=== PATIENT | female | born 1970 | race Caucasian/White ===

== ENCOUNTER 2019-05-06 09:00 | Outpatient (CLI) | payer BC, SELFPAY ==
--- NOTE | ~2019-05-06 | US_ITS ---
EXAMINATION: US transvaginal DATE: 05/06/2019 09:47 INDICATION: Abnormal uterine bleeding TECHNIQUE: Multiple endovaginal sonographic images of the pelvis were obtained. COMPARISON: None. FINDINGS: The uterus measures 7.9 x 4.3 x 5.2 cm. There is a 2.1 x 1.7 cm isoechoic area in the poste rior uterine body which has the appearance of an intramural fibroid. There also appears to be 1.5 x 1 .4 cm subserosal fibroid projecting at the right posterior lateral aspect of the uterine body. The en dometrial complex measures 5 mm. The right ovary measures 1.8 x 1.5 x 2.1 cm. The left ovary measures 2.2 x 2.0 x 2.9 cm. There is no free fluid in the pelvis. IMPRESSION: 1. No sonographic correlate for the patient's symptoms. Reviewed, dictated and finalized at location A.
== END 2019-05-06 09:01 ==
PROVIDERS: PCP Family Medicine; Visit Provider Obstetrics & Gynecology
DX: N93.9 Abnormal uterine and vaginal bleeding, unspecified (principal)
CPT/HCPCS: 76830

== ENCOUNTER → 2020-05-07 18:11 | Outpatient (CLI) | payer BC, SELFPAY ==
--- NOTE | ~2020-05-07 | MM_ITS ---
EXAMINATION: MM screening [facility] BI w martin HISTORY: Screening mammogram TECHNIQUE: Craniocaudal and mediolateral oblique 3-D tomosynthesis images were obtained and synthetic 2-D images were generated. CAD analysis was submitted and interpreted. COMPARISON: 09/10/2018, 10/13/2015, 03/13/2015, 03/09/2015 BREAST PARENCHYMAL COMPOSITION: There are scattered areas of fibroglandular density. FINDINGS: There is no evidence of suspicious mass, calcification, or architectural distortion to sugg est malignancy in either breast. There has been no suspicious interval change. IMPRESSION: 1. No mammographic evidence of malignancy. 2. Recommend routine screening mammography in one year. BI-RADS Category 1: Negative Reviewed, dictated and finalized at location A.
== END ==
PROVIDERS: Visit Provider Obstetrics & Gynecology
DX: Z12.31 Encounter for screening mammogram for malignant neoplasm of breast (principal)
CPT/HCPCS: 77063; 77067

== ENCOUNTER 2021-05-05 13:48 | Outpatient (CLI) | payer BC, SELFPAY ==
--- NOTE | ~2021-05-05 | XR_ITS ---
XR chest 2V DATE: 05/05/2021 14:17 INDICATION: Tobacco use TECHNIQUE: PA and lateral views COMPARISON: 08/15/2018 PA and lateral chest FINDINGS: Normal heart size. No hilar or mediastinal enlargement. No pulmonary infiltrate or consolid ation, pleural effusion or pulmonary vascular congestion or pneumothorax. IMPRESSION: No active cardiopulmonary disease Reviewed, dictated and finalized at location A.
== END 2021-05-05 13:49 ==
PROVIDERS: PCP Physician Assistant Medical; Visit Provider Physician Assistant Medical
DX: Z72.0 Tobacco use (principal)
CPT/HCPCS: 71046

== ENCOUNTER → 2021-07-08 15:18 | Outpatient (CLI) | payer BC, SELFPAY ==
--- NOTE | ~2021-07-08 | MM_ITS ---
EXAMINATION: MM screening [facility] BI w martin HISTORY: Screening mammogram TECHNIQUE: Craniocaudal and mediolateral oblique 3-D tomosynthesis images were obtained and synthetic 2-D images were generated. CAD analysis was submitted and interpreted. COMPARISON: 05/07/2020, 09/10/2018, 10/13/2015 bilateral screening mammogram examinations BREAST PARENCHYMAL COMPOSITION: There are scattered areas of fibroglandular density. FINDINGS: There is no evidence of suspicious mass, calcification, or architectural distortion to sugg est malignancy in either breast. There has been no suspicious interval change. IMPRESSION: 1. No mammographic evidence of malignancy. 2. Recommend routine screening mammography in one year. BI-RADS Category 1: Negative Reviewed, dictated and finalized at location A.
--- NOTE | ~2021-07-08 | DEXA_ITS ---
Bone Density Report Name: JAMES CANTU Age: 51 Sex: Female Ethnicity: White Date of : 1970 Indication: postmenopausal; screening for osteoporosis; Referring Provider: SILVIANO, ADDY Study: Bone densitometry was performed. Exam Date: July 08, 2021 Accession number: [id number] Bone Density: Region BMD T-score Z-score Classification AP Spine (L1-L4) 1.185 1.3 2.1 Normal Femoral Neck (Left) 0.974 1.1 1.9 Normal Total Hip (Left) 1.145 1.7 2.2 Normal Femoral Neck (Right) 0.952 0.9 1.7 Normal Total Hip (Right) 1.139 1.6 2.1 Normal Total Hip Mean 1.142 1.7 2.2 Normal World Health Organization criteria for BMD impression classify patients as: Normal (T-score at or above -1.0), Osteopenia (T-score between -1.0 and -2.5), or Osteoporosis (T-score at or below -2.5). 10-year Fracture Risk: FRAX not reported because: All T-scores for Spine Total, Hip Total, Femoral Neck at or above -1.0 Clinical Information Provided by Patient: Smokes Patient maximum height was 67.5 Menopause Age: 50 No regular weight bearing exercise Drinks caffeinated beverages Onset of menses at age 13 Number of children 3 Impression: The patient has normal bone mass. The patient has risk factors, including: smoking. Discussion: BONE DENSITY IS ABOVE THE MINIMUM DESIRABLE LEVEL AT ALL SKELETAL SITES TESTED. This patient?s bone mineral density is above the minimum desirable level (T-score -1.0 or better) at all sites measured. The patient should follow a healthful lifestyle (good nutrition with adequate calcium and vitamin D, and appropriate weight-bearing exercise). Follow-Up: Consider repeating this study in 5 years or sooner if there is some new clinical indication. Reported by: ANAND on 07/08/2021 3:59:00 PM. Reviewed, dictated and finalized at location AJose Francisco BUTCHER
== END ==
PROVIDERS: PCP Family Medicine; Visit Provider Nurse Practitioner
DX: Z12.31 Encounter for screening mammogram for malignant neoplasm of breast (principal); Z78.0 Asymptomatic menopausal state
CPT/HCPCS: 77063; 77067; 77080

== ENCOUNTER 2021-09-17 17:24 | Emergency (ER) | payer BC, SELFPAY ==
--- NOTE | ~2021-09-17 | XR_ITS ---
EXAMINATION: XR chest 2V 09/17/2021 17:55 INDICATION: Productive cough with shortness of breath PROCEDURE: 2 view chest COMPARISON: Comparison to multiple prior studies sequentially, with oldest reviewed study dated 11/07. FINDINGS: The lungs are clear. The cardiomediastinal silhouette is within normal limits. There are no pleural effusions. There is no pneumothorax suspected. IMPRESSION: 1: NO ACUTE CARDIOPULMONARY DISEASE. Reviewed, dictated and finalized at location A.
[2021-09-17 17:31] VITALS: BP 117/84; PULSE 73; RESP 18; TEMP 37; O2SAT 100
--- NOTE | 2021-09-17 18:12 | ED.URI ---
HPI - URI/Sore Throat General Chief Complaint: Upper Respiratory Infection Stated Complaint: Cough,Shortness of Breath,Congestion Time Seen by Provider: 09/17/21 18:00 History of Present Illness HPI Narrative: Natalie Ryan is a 51 yo female with PMH of hyperlipidemia and enlarged thyroid ,but smokes 1 PPD who comes with a cough that wakes her up at night. She states that been going on for 2 to 3 weeks and continually gets worse. She has not taken anything for it but has tried elevating the bed is well-hydrated . Denies fever nausea vomiting diarrhea Related Data Allergies Allergy/AdvReac Type Severity Reaction Status Date / Time sulfanilamide Allergy Intermediate Diarrhea Verified 09/17/21 17:35 Sulfa (Sulfonamide AdvReac Mild Abdominal Verified 09/17/21 17:51 Antibiotics) Pain Review of Systems Review of Systems: CONSTITUTIONAL: Denies fever, chills, sweats. EYES: Denies visual changes, redness, discharge. ENT: Denies rhinorrhea, congestion, sore throat, otalgia. CARDIOVASCULAR: Denies chest pain, palpitations, edema. RESPIRATORY: Denies dyspnea, wheezing, has cough-feels like she is choking when she wakes up GASTROINTESTINAL: Denies abdominal pain, nausea, vomiting, diarrhea. GENITOURINARY: Denies dysuria, hematuria, abnormal discharge SKIN: Denies rash or itching. NEUROLOGIC: Denies numbness, or focal weakness. PSYCHIATRIC: Denies anxiety or depression. [facility]LY [facility], [facility] Past Medical History Medical History Anxiety BMI 25.0-25.9,adult Cyst of kidney, acquired Mixed hyperlipidemia Seasonal allergies Thyroid enlargement Family History Family History Father Family history of premature coronary heart disease Hypertension Acute myocardial infarction Heart disease Grandparent Family history of malignant neoplasm Family history of coronary artery disease Mother No problems noted. Sibling No problems noted. 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 There is no relevant family history pertinent to the presenting complaint. Exam Narrative: GENERAL: This is a well-nourished, well-developed patient, in mild distress. HEAD: normocephalic, atraumatic. EYES: Sclera clear/white. Vision is grossly intact. EARS: External ears normal, . Hearing grossly intact. NOSE: External nose normal without nasal discharge, nares without redness, no rhinorrhea. THROAT: Mucous membranes moist, NECK: Neck supple, non-tender CARDIOVASCULAR: Regular rate and rhythm without murmurs, gallops, or rubs. RESPIRATORY: Diminished to auscultation. Breath sounds equal bilaterally. No wheezes, rales, or rhonchi. GASTROINTESTINAL: Not done SKIN: warm, intact with no suspicious lesions or rash, good texture and turgor. NEURO: awake, alert, and oriented to person, place and time. There were no obvious focal neurologic abnormalities. Steady gait EXTREMITIES: Normal range of motion. BACK: Nontender without deformity Course Course Emergency Course: Patient here with cough that wakes her up at night for the last 2 to 3 weeks- she is a current smoker Chest x-ray shows no active cardiopulmonary disease COVID test is negative Discussed in length smoking and also the symptoms she is having started on prednisone, Zyrtec, Tessalon Perles Level of Care: Express Care Visit Vital Signs Vital signs: Vital Signs Temperature 98.6 F 09/17/21 17:31 Pu
== END 2021-09-17 18:25 | disposition home or self-care (01) ==
PROVIDERS: Emergency Provider Nurse Practitioner; PCP Family Medicine
DX: R05.1 Acute cough (principal); Z20.822 Contact with and (suspected) exposure to COVID-19; F17.210 Nicotine dependence, cigarettes, uncomplicated; E78.2 Mixed hyperlipidemia; E04.9 Nontoxic goiter, unspecified
CPT/HCPCS: 71046; 87426; 99213; C9803; G0463

== ENCOUNTER 2021-10-30 13:05 | Emergency (ER) | payer BC, SELFPAY ==
--- NOTE | 2021-10-30 13:10 | ED.URI ---
HPI - URI/Sore Throat General Chief Complaint: Upper Respiratory Infection Stated Complaint: Sinus,Cough Time Seen by Provider: 10/30/21 13:10 Source: patient Mode of arrival: ambulatory Limitations: no limitations History of Present Illness HPI Narrative: Mrs. Ryan is 51 year old female patient presenting to the clinic today with c/o sinus pressure, productive cough, and headache x3 months. States she was seen here in the clinic 6 weeks ago for the same symptoms and was given prescription for tessalon pearls and prednisone. She had an x-ray done at that time and it was negative. MD elicited complaint: cough, nasal congestion and sinus pain Related Data Allergies Allergy/AdvReac Type Severity Reaction Status Date / Time sulfanilamide Allergy Intermediate Diarrhea Verified 10/30/21 13:10 Sulfa (Sulfonamide AdvReac Mild Abdominal Verified 10/30/21 13:10 Antibiotics) Pain Review of Systems Review of Systems: Pertinent positives per HPI. Patient denies any fever, chills, rash, headache, visual changes, dizziness, cough, shortness of breath, chest pain, palpitations, nausea, vomiting, diarrhea, constipation, abdominal pain, or any urinary issues. [facility] Past Medical History Medical History Anxiety BMI 25.0-25.9,adult Cyst of kidney, acquired Mixed hyperlipidemia Seasonal allergies Thyroid enlargement Family History Family History Father Family history of premature coronary heart disease Hypertension Acute myocardial infarction Heart disease Grandparent Family history of malignant neoplasm Family history of coronary artery disease Mother No problems noted. Sibling No problems noted. 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 There is no relevant family history pertinent to the patient complaint. Exam Narrative: General: Well-developed, well nourished, in no apparent distress Head: Normocephalic, atraumatic Eyes: Pupils equally round and reactive to light bilaterally, EOM intact, sclera and conjunctive clear, no discharge, lids normal Ears: TMs intact and clear, ear canals clear, no drainage, grossly hearing normal. Nose: Nares patent, clear nasal discharge, severe inflammation, maxillary and frontal sinus tenderness. Mouth: Oral pharynx without lesions or masses, good dentition, MMM. Post nasal drip Neck: Supple, trachea midline, no enlargement of anterior or posterior cervical nodes, no thyroid masses or goiter palpable. Cardio: Regular rate and rhythm, s1 and s2 normal, no murmur appreciated. Resp: Clear to auscultation bilaterally, no rhonchi, rales, wheezing or rubs Course Course Emergency Course: Portions of this record may have been created with voice recognition software. Level of Care: Express Care Visit Vital Signs Vital signs: Vital signs reviewed MDM - URI/Sore Throat MDM Narrative Medical decision making narrative: At the time of visit patient is resting comfortably in the exam table. I suspect the patient has bacterial rhinosinusitis and will give her a prescription for some Augmentin and some prednisone. Supportive measures were discussed with the patient she voiced understanding of discharge instructions and agrees to treatment plan peer Differential Diagnosis Differential diagnosis: Likely upper respiratory infection, otitis media, sin
[2021-10-30 13:13] VITALS: BP 114/79; PULSE 76; RESP 18; TEMP 37.3; O2SAT 100
== END 2021-10-30 13:39 | disposition home or self-care (01) ==
PROVIDERS: Emergency Provider Nurse Practitioner Family; PCP Family Medicine
DX: J01.90 Acute sinusitis, unspecified (principal); B96.89 Other specified bacterial agents as the cause of diseases classified elsewhere; E78.5 Hyperlipidemia, unspecified; F17.210 Nicotine dependence, cigarettes, uncomplicated
CPT/HCPCS: 99213; G0463

== ENCOUNTER 2022-04-01 02:55 | Day surgery (SDC) | payer BC, SELFPAY ==
[2022-03-24 13:08] VITALS: BMI 23.4
[2022-04-01 08:32] VITALS: BP 115/49; PULSE 82; RESP 20; TEMP 36.2; O2SAT 99
[2022-04-01] MEDS: LACTATED RINGERS 1,000 ML 150 ML IV CONT (08:46)
[2022-04-01 08:47] VITALS: BMI 23.1
--- NOTE | 2022-04-01 08:59 | P.PNAN_ITS ---
Anes - Initial Pre Proc Eval Procedure: Operation Date: 04/01/22 09:30 Proposed Procedures p Screening Colonoscopy - Sebastian Werner MD Date/Time: 04/01/22 08:59 Surgeon: Sebastian Werner MD Pre Op Diagnosis: neoplasm screening Patient Data Age: 51 Gender: F Height: 1.7 m Weight: 66.8 kg Last Vital Signs Temp 97.2 F L 04/01/22 08:32 Pulse 82 04/01/22 08:32 Resp 20 04/01/22 08:32 BP 115/49 L 04/01/22 08:32 Pulse Ox 99 04/01/22 08:32 O2 Del Method Room Air 04/01/22 08:32 Allergies Allergy/AdvReac Type Severity Reaction Status Date / Time sulfanilamide Allergy Intermediate Diarrhea Verified 04/01/22 08:28 Sulfa (Sulfonamide Allergy Mild Abdominal Verified 04/01/22 08:28 Antibiotics) Pain Patient hx anesthesia problems: none Family hx anesthesia problems: none Results Review: All pre-operative results and documents have been reviewed as part of the pre- operative evaluation. [facility] Past Medical History Medical History Anxiety BMI 25.0-25.9,adult Cyst of kidney, acquired Mixed hyperlipidemia Seasonal allergies Thyroid enlargement Family History Family History Father Family history of premature coronary heart disease Hypertension Acute myocardial infarction Heart disease Grandparent Family history of malignant neoplasm Family history of coronary artery disease Mother No problems noted. Sibling No problems noted. 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 Informed Consent: The patient's anesthetic plan and its attendant risks and benefits were discussed with the patient/family/POA. Questions were solicited and answers provided to the satisfaction of the patient/family/POA.
--- NOTE | 2022-04-01 09:11 | PM.HPGS ---
History of Present Illness History of Present Illness Consent: Risks, benefits, and alternatives have been discussed and questions answered. Patient agrees to proceed with procedure. Chief complaint: neoplasm screening Narrative: Jeannie Ryan is a 51 year old female Presents for screening colonoscopy. Patient's current weight appetite bowel movements are normal. Patient denies abdominal pain. sHe has had no bleeding. Patient had previous diagnosis of Lobo's esophagus. Plan for screening EGDs every 3 years this will be arranged separately. Review of Systems Review of Systems: noncontributary [facility] Past Medical History Medical History Anxiety BMI 25.0-25.9,adult Cyst of kidney, acquired Mixed hyperlipidemia Seasonal allergies Thyroid enlargement Family History Family History Father Family history of premature coronary heart disease Hypertension Acute myocardial infarction Heart disease Grandparent Family history of malignant neoplasm Family history of coronary artery disease Mother No problems noted. Sibling No problems noted. 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 Vital signs stable. HEENT exam is unremarkable. Patient is anicteric. Lungs are clear. Heart without murmur. Abdomen bowel sounds present soft nontender with no organomegaly. Digital external rectal exam normal. Assessment and Plan Assessment and plan (1) Screening for colon cancer: Code(s): Z12.11 - Encounter for screening for malignant neoplasm of colon Status: Acute Assessment and Plan: Patient presents for neoplasia screening colonoscopy. Further recommendations will be given after endoscopy. She appears to be at average risk for colon polyps. (2) Lobo's esophagus: Code(s): K22.70 - Lobo's esophagus without dysplasia Status: Acute Assessment and Plan: Lobo's esophagus diagnosed 3 years ago. Plan for surveillance colonoscopy this should be arranged electively and consider this at 3 year intervals. (3) GERD (gastroesophageal reflux disease): Code(s): K21.9 - Gastro-esophageal reflux disease without esophagitis Status: Acute Assessment and Plan: GERD stable on current therapy.
[2022-04-01 09:55] VITALS: BP 91/57; PULSE 68; RESP 17; O2SAT 99
[2022-04-01 10:05] VITALS: BP 85/56; PULSE 64; RESP 17; O2SAT 99
[2022-04-01 10:15] VITALS: BP 100/92; PULSE 60; RESP 20; O2SAT 99
== END 2022-04-01 10:32 | disposition home or self-care (01) ==
PROVIDERS: PCP Family Medicine; Visit Provider Internal Medicine Gastroenterology
PROC: 0DJD8ZZ Inspection of Lower Intestinal Tract, Via Natural or Artificial Opening Endoscopic (ICD-10-PCS; CPT 45378; principal; 2022-04-01 09:30)
DX: Z12.11 Encounter for screening for malignant neoplasm of colon (principal); K64.8 Other hemorrhoids; F17.210 Nicotine dependence, cigarettes, uncomplicated
CPT/HCPCS: 45378; J2704; J7120

== ENCOUNTER 2022-06-10 15:41 | Outpatient (CLI) | payer BC, SELFPAY ==
--- NOTE | ~2022-06-10 | US_ITS ---
EXAMINATION: US transvaginal DATE: 06/10/2022 16:10 INDICATION: pmb TECHNIQUE: Multiple transabdominal and endovaginal sonographic images of the pelvis were obtained. COMPARISON: None. FINDINGS: Uterus: 6.7 x 3.3 x 4.3 cm. Endometrial complex measures 3 mm. Right Ovary: Not visualized. No adnexal mass. Left Ovary: Not visualized. No adnexal mass. There is no free fluid in the pelvis. IMPRESSION: Ovaries not visualized, otherwise normal pelvic sonogram findings. Reviewed, dictated and finalized at location K.
== END 2022-06-10 15:42 ==
LOC: MICIMG 15:43
PROVIDERS: PCP Nurse Practitioner; Visit Provider Nurse Practitioner
DX: N95.0 Postmenopausal bleeding (principal)
CPT/HCPCS: 76830

== ENCOUNTER 2022-08-09 09:02 | Emergency (ER) | payer BC, SELFPAY ==
--- NOTE | ~2022-08-09 | XR_ITS ---
EXAMINATION: XR heel LT min 2V INDICATION: Left heel pain TECHNIQUE: Two views of the left heel are obtained. COMPARISON: None available FINDINGS: Bone alignment is normal. There is no fracture. Posterior and plantar calcaneal enthesophyt es are noted. There is mild osteoarthritis of the midfoot. There is plantar soft tissue swelling of t he foot near the calcaneus. No radiopaque foreign body is identified. IMPRESSION: 1. Soft tissue swelling and osteoarthritis without acute osseous abnormality. Reviewed, dictated and finalized at location A.
--- NOTE | 2022-08-09 09:04 | ED.LOWEXIN ---
HPI - Extremity Injury (Lower) General Chief Complaint: Extremity Problem,Nontraumatic Stated Complaint: Lt Foot Pain Time Seen by Provider: 08/09/22 09:04 Source: patient Mode of arrival: ambulatory Limitations: no limitations History of Present Illness HPI Narrative: Jeannie is a 52-year-old female patient presenting to the clinic today with complaints of left heel pain x1 week. She reports she has pain to the posterior heel and it is radiating upper calf. No injury. She denies being a runner . No pain to the bottom of her foot. Pain is worse weight-bearing and when she is walking. Related Data Allergies Allergy/AdvReac Type Severity Reaction Status Date / Time sulfanilamide Allergy Intermediate Diarrhea Verified 08/09/22 09:16 Sulfa (Sulfonamide Allergy Mild Abdominal Verified 08/09/22 09:16 Antibiotics) Pain Review of Systems Review of Systems: Pertinent positives per HPI. Patient denies any fever, chills, rash, headache, visual changes, dizziness, cough, runny nose, sore throat, shortness of breath, chest pain, palpitations, nausea, vomiting, diarrhea, constipation, abdominal pain, or any urinary issues. [facility] Past Medical History Medical History Anxiety BMI 22.0-22.9, adult BMI 25.0-25.9,adult Cyst of kidney, acquired Mixed hyperlipidemia Seasonal allergies Thyroid enlargement Family History Family History Father Family history of premature coronary heart disease Hypertension Acute myocardial infarction Heart disease Grandparent Family history of malignant neoplasm Family history of coronary artery disease Mother No problems noted. Sibling No problems noted. Social History Social History Smoking packs per day: 0.5 Smoking cigarettes per day: 10.0 Years smoked: 32 Smoking pack-years: 16.00 Smoking status: Current every day smoker Tobacco type: cigarettes Second hand tobacco smoke exposure: No Alcohol intake: current Drinks per week: 1 Alcohol use details: WINE Substance use: never Substance use type: does not use Lack of Transportation: No Lack of Food: Never True Current Housing: I Have Housing Concerned About Future Housing: No Difficulty Paying Gas/Electric Bills: No Difficulty Paying for Meds: No Currently Unemployed: No Education: Associate Degree Difficulty w/ Childcare or Family Care: No Living arrangements: with family Occupation/Education: occupation 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 There is no relevant family history pertinent to the patient complaint. Exam Narrative: General: Well-developed, well nourished, in no apparent distress Head: Normocephalic, atraumatic. Cardio: Regular rate and rhythm, s1 and s2 normal, no murmur appreciated. Resp: Clear to auscultation bilaterally, no rhonchi, rales, wheezing or rubs. Musculoskeletal: No deformity, mild tender to palpation over the posterior heel/Achilles tendon, pain when weight-bearing and ambulation over the posterior heel with pain radiating up into the calf, grossly normal range of motion, muscle strength strong and equal, peripheral pulse strong, no edema, no cyanosis, normal gait and station Course Course Emergency Course: Portions of this record may have been created with voice recognition software. Level of Care: Express Care Visit Vital Signs Vital signs: Vital signs reviewed MDM - Extremity Injury (Lower) MDM Narrative Medical decision making narrative: At the time of visit patient is resting com
[2022-08-09 09:10] VITALS: BP 117/67; PULSE 74; RESP 18; TEMP 37; O2SAT 100
== END 2022-08-09 09:48 | disposition home or self-care (01) ==
PROVIDERS: Emergency Provider Nurse Practitioner Family; PCP Family Medicine
DX: M76.62 Achilles tendinitis, left leg (principal); M77.32 Calcaneal spur, left foot; M19.072 Primary osteoarthritis, left ankle and foot; F17.210 Nicotine dependence, cigarettes, uncomplicated; E78.2 Mixed hyperlipidemia
CPT/HCPCS: 73650; 99213; G0463

== ENCOUNTER → 2022-08-15 16:01 | Outpatient (CLI) | payer BC, SELFPAY ==
--- NOTE | ~2022-08-15 | MM_ITS ---
EXAMINATION: MM screening boni BI w martin HISTORY: Screening mammogram TECHNIQUE: Craniocaudal and mediolateral oblique 3-D tomosynthesis images were obtained and synthetic 2-D images were generated. CAD analysis was submitted and interpreted. COMPARISON: 07/08/2021, 05/07/2020, 09/10/2018 bilateral screening mammogram examinations BREAST PARENCHYMAL COMPOSITION: There are scattered areas of fibroglandular density. FINDINGS: There is no evidence of suspicious mass, calcification, or architectural distortion to sugg est malignancy in either breast. There has been no suspicious interval change. IMPRESSION: 1. No mammographic evidence of malignancy. 2. Recommend routine screening mammography in one year. BI-RADS Category 1: Negative Reviewed, dictated and finalized at location A.
== END ==
PROVIDERS: PCP Nurse Practitioner; Visit Provider Nurse Practitioner
DX: Z12.31 Encounter for screening mammogram for malignant neoplasm of breast (principal)
CPT/HCPCS: 77063; 77067

== ENCOUNTER 2022-09-26 14:47 | Emergency (ER) | payer BC, SELFPAY ==
--- NOTE | ~2022-09-26 | XR_ITS ---
EXAMINATION: XR chest 2V 09/26/2022 15:22 INDICATION: Cough and chest tightness. PROCEDURE: 2 view chest COMPARISON: Comparison to multiple prior studies sequentially, with oldest reviewed study dated 03/02. FINDINGS: The lungs are clear. The cardiomediastinal silhouette is within normal limits. There are no pleural effusions. There is no pneumothorax suspected. IMPRESSION: 1: NO ACUTE CARDIOPULMONARY DISEASE. Reviewed, dictated and finalized at location B.
[2022-09-26 14:56] VITALS: BP 116/70; PULSE 77; RESP 20; TEMP 37.1; O2SAT 100
--- NOTE | 2022-09-26 15:12 | ECG_ITS ---
Measurements Intervals Hall Rate: 72 P: 52 NE: 160 QRS: 40 QRSD: 93 T: 49 QT: 367 QTc: 404 Interpretive Statements SINUS RHYTHM COMPARED TO ECG 08/15/2018 09:24:09 NO SIGNIFICANT CHANGES Electronically Signed On 09-27-2022 11:12:06 CDT by Lance Damian M.D.
--- NOTE | 2022-09-26 15:17 | ED.URI ---
HPI - URI/Sore Throat General Chief Complaint: Upper Respiratory Infection Stated Complaint: Chest Tightness Source: patient Mode of arrival: ambulatory Limitations: no limitations History of Present Illness HPI Narrative: 52-year-old female presents [facility] complains of nonproductive cough for the past 3 days. Patient reports that she had started with midsternal chest pains for the past 2 days. Patient reports it feels like something is sitting on my chest. Patient took [id number] aspirin with no relief. Patient denies fever, body aches, chills, nausea vomiting or diarrhea. Patient reports the pain is worse with inspiration. Patient is a smoker. Patient has shortness of breath, wheezing. Patient reports her father of a [place] at age 59. Patient reports history of hyper lipidemia. MD elicited complaint: cough Onset (ago): day(s) (3) Severity: mild Able to tolerate fluids by mouth: Yes Exacerbating factors: nothing Relieving factors: nothing Associated symptoms: chest pain Related Data Allergies Allergy/AdvReac Type Severity Reaction Status Date / Time Sulfa (Sulfonamide AdvReac Intermediate Gastrointestinal Verified 09/26/22 14:48 Antibiotics) Upset sulfanilamide AdvReac Intermediate Diarrhea Verified 09/26/22 14:48 Review of Systems Constitutional: Constitutional: Denies chills, Denies fatigue, Denies fever(s) and Denies weakness ENT: Denies vertigo, Denies dizziness, Denies epistaxis, Denies nasal congestion and Denies sore throat Cardiovascular: Cardiovascular: Reports chest pain, Denies rapid heart rate, Denies radiating jaw, neck or arm pain and Denies slow heart rate Respiratory: Respiratory: Reports cough, Denies dyspnea and Denies wheezing Gastrointestinal: Gastrointestinal: Denies diarrhea, Denies nausea and Denies vomiting Integumentary/Breasts: Skin/Breast: Denies pruritus, Denies erythema, Denies rash and Denies skin ulcer Neurologic: Denies dizziness, Denies syncope and Denies headache(s) [facility] Past Medical History Medical History Anxiety BMI 22.0-22.9, adult BMI 25.0-25.9,adult Cyst of kidney, acquired Mixed hyperlipidemia Seasonal allergies Thyroid enlargement Family History Family History Father Family history of premature coronary heart disease Hypertension Acute myocardial infarction Heart disease Grandparent Family history of malignant neoplasm Family history of coronary artery disease Mother No problems noted. Sibling No problems noted. Social History Social History Smoking packs per day: 0.5 Smoking cigarettes per day: 10.0 Years smoked: 32 Smoking pack-years: 16.00 Smoking status: Current every day smoker Tobacco type: cigarettes Second hand tobacco smoke exposure: No Alcohol intake: current Drinks per week: 1 Alcohol use details: WINE Substance use: never Substance use type: does not use Lack of Transportation: No Lack of Food: Never True Current Housing: I Have Housing Concerned About Future Housing: No Difficulty Paying Gas/Electric Bills: No Difficulty Paying for Meds: No Currently Unemployed: No Education: Associate Degree Difficulty w/ Childcare or Family Care: No Living arrangements: with family Occupation/Education: occupation 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 There is no relevant family history pertinent to the presenting complaint. Exam Const: General: healthy appearing and no acute distress Nutritional Appearance: well nourished Orientation/consciousness: patient oriented x3 L
== END 2022-09-26 15:55 | disposition short-term general hospital (02) ==
PROVIDERS: Emergency Provider Nurse Practitioner Family; PCP Family Medicine
DX: R07.9 Chest pain, unspecified (principal); Z20.822 Contact with and (suspected) exposure to COVID-19; F17.210 Nicotine dependence, cigarettes, uncomplicated; E78.2 Mixed hyperlipidemia
CPT/HCPCS: 71046; 87426; 93005; 99213; C9803; G0463

== ENCOUNTER 2024-02-19 13:21 | Emergency (ER) | payer BC, SELFPAY ==
--- NOTE | ~2024-02-19 | XR_ITS ---
XR chest 2V Ordering provider: Yolande Newman APRN History: 53 years Female with . cough . Comparison: September 26, 2022 FINDINGS: MEDIASTINUM: The cardiac silhouette is not enlarged. LUNGS: No infiltrates, effusions or pneumothorax. OTHER: No free air under the diaphragm. IMPRESSION: No acute cardiopulmonary pathology. Reviewed, dictated and finalized at location A. ER ENGINEER
[2024-02-19 13:34] VITALS: BP 121/52; PULSE 79; RESP 18; TEMP 37.1; O2SAT 99
--- NOTE | 2024-02-19 13:40 | ED.URI ---
HPI - URI/Sore Throat General Chief Complaint: Upper Respiratory Infection Stated Complaint: congestion/arm pain Time Seen by Provider: 02/19/24 13:40 Source: patient, RN notes reviewed and old records reviewed Mode of arrival: ambulatory Limitations: no limitations History of Present Illness HPI Narrative: Patient presents with complaints of 10-12 days of sinus pain and congestion that is worsening, also complaining of some left arm pain that is worse with movement of the shoulder. She denies any injury or trauma. She has been taking [id number]-[id number]-[id number] medications for both of her complaints with minimal relief. She denies any fever, does endorse some lack of energy. She is also complaining of intermittent chills. Reports nonproductive cough that is worse at night. She denies any injury or trauma. Voices no other concerns or complaints at this time Related Data Allergies Allergy/AdvReac Type Severity Reaction Status Date / Time Sulfa (Sulfonamide AdvReac Intermediate Gastrointestinal Verified 02/19/24 13:41 Antibiotics) Upset sulfanilamide AdvReac Intermediate Diarrhea Verified 02/19/24 13:41 Review of Systems Review of Systems: All systems reviewed & are unremarkable except as noted in HPI and below Constitutional: Constitutional: Reports no additional constitutional complaints, Reports chills, Reports headache(s) and Reports lethargy ENT: Reports system reviewed and no additional complaints, except as documented, Reports headache(s), Reports sinus pain, Reports sinus pressure and Reports sore throat Cardiovascular: Cardiovascular: Reports no additional cardiovascular complaints Respiratory: Respiratory: Reports no additional respiratory complaints and Reports cough Gastrointestinal: Gastrointestinal: Reports no additional gastrointestinal complaints Musculoskeletal: Musculoskeletal: Reports as per HPI [facility] Past Medical History Medical History Anxiety BMI 22.0-22.9, adult BMI 25.0-25.9,adult Cyst of kidney, acquired Mixed hyperlipidemia Seasonal allergies Thyroid enlargement Family History Family History Father Family history of premature coronary heart disease Hypertension Acute myocardial infarction Heart disease Grandparent Family history of malignant neoplasm Family history of coronary artery disease Mother No problems noted. Sibling No problems noted. Social History Social History Smoking packs per day: 0.5 Smoking cigarettes per day: 10.0 Years smoked: 32 Smoking pack-years: 16.00 Smoking status: Current every day smoker Tobacco type: cigarettes Second hand tobacco smoke exposure: No Alcohol intake: current Drinks per week: 1 Alcohol use details: WINE Substance use: never Substance use type: does not use Lack of Transportation: No Lack of Food: Never True Current Housing: I Have Housing Concerned About Future Housing: No Difficulty Paying Gas/Electric Bills: No Difficulty Paying for Meds: No Currently Unemployed: No Education: Associate Degree Difficulty w/ Childcare or Family Care: No Living arrangements: with family Occupation/Education: occupation 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 There is no relevant family history pertinent to the patient complaint. Exam Const: General: cooperative, no acute distress, alert and awake Orientation/consciousness: oriented to person, oriented to place and oriented to time HENMT: Head: normal to inspection Ears: TM abnormal dull bilateral Face/Nose/Sinus: sinus tenderness Mouth: Yes moist mucous membranes Throat: posterior oropharynx abnormal erythema Resp: Effort & Inspection: normal respiratory effort and able to speak in complete sentences Auscultation: clear to auscultation bilaterally, no crackles, no rales, no rhonchi and no wheezes Cardio: Palpation: normal PMI Rate: regular rate Rhythm: regular rhythm Heart sounds: S1 normal heart sound present and S2 normal heart sound present Neuro: General: oriented to person, oriented to place and oriented to time Cranial nerves: Yes CN's II-XII intact bilaterally Extrem: Shoulder/upper arm images:  1. tenderness, reproducible with palpation of right side of neck Psych: Appearance: grossly normal Thought process: Normal thought process present Insight: Good insight present (Psych) Judgement: Good judgement present (Psych) Course Course Level of Care: Express Care Visit Vital Signs Vital signs: Vital Signs Temperature 98.7 F 02/19/24 13:34 Pulse Rate 79 02/19/24 13:34 Respiratory Rate 18 02/19/24 13:34 Blood Pressure 121/52 L 02/19/24 13:34 Pulse Oximetry 99 02/19/24 13:34 Oxygen Delivery Room Air 02/19/24 13:34 Temperature 98.7 F 02/19/24 13:34 Pulse Rate 79 02/19/24 13:34 Respiratory Rate 18 02/19/24 13:34 Blood Pressure 121/52 L 02/19/24 13:34 Pulse Oximetry 99 02/19/24 13:34 Oxygen Delivery Room Air 02/19/24 13:34 Reviewed MDM - URI/Sore Throat MDM Narrative Medical decision making narrative: history and exam consistent with sinusitis as well as left arm pain likely secondary to radicular pain. Start oral steroids and antibiotic therapy. patient is nontoxic appearing and stable for discharge home. Discharge instructions reviewed with patient, as well as provided in writing per nursing staff. The instructions also include specific and strict return/GO TO THE ER as well as f/u information. All questions have been answered, and the patient deny any further questions with discharge and discharge plan. Some parts of this dictation were generated by voice recognition software and may contain typographical and/or grammatical inaccuracies. Differential Diagnosis Differential diagnosis: Likely upper respiratory infection, otitis media, sinusitis, viral infection and bronchitis Medical Records Attestation: I reviewed the patient's medical records. Imaging Data My impression: no acute findings Radiologist's impression: [place] [address] XRay Report Signed Patient: Jeannie Ryan : 1970 MR#: [id number] Age: 53 Acct:[id number] Loc: [facility] ADM Date: 02/19/24Attending Dr: Ordering Physician: Yolande Newman FNP Date of Service: 02/19/24 Procedure(s): XR chest 2V Accession Number(s): [id number] cc: Yolande Newman FNP; Cristopher Blakely MD~ XR chest 2V Ordering provider: Yolande Newman APRN History: 53 years Female with . cough . Comparison: September 26, 2022 FINDINGS: MEDIASTINUM: The cardiac silhouette is not enlarged. LUNGS: No infiltrates, effusions or pneumothorax. OTHER: No free air under the diaphragm. IMPRESSION: No acute cardiopulmonary pathology. Reviewed, dictated and finalized at location A. 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 It is intended for [id number] communication. It is written in medical language and may contain unfamiliar abbreviations or verbiage. Medical documents are intended to carry relevant information, facts as evident, and the clinical opinion of the practitioner at the time of the encounter. This report may have been done utilizing a voice recognition system. Attempts have been made to correct errors. However, there may be uncorrected grammatical, spelling, and recognition errors present. The file time of this note does not necessarily represent the time the patient was seen. Dictated By: Jimbo Raza MD 02/19/24 1357 Signed By: <Electronically signed by Jimbo Raza MD in OV> 02/19/24 1359 Discharge Plan Discharge Clinical Impression: Radicular pain Sinusitis Qualifiers: Sinusitis location: frontal Chronicity: acute Recurrence: not specified as recurrent Qualified Code(s): J01.10 - Acute frontal sinusitis, unspecified Patient Disposition: Home, Self-Care Condition: Stable Instructions: Antibiotic Form, Sinusitis (ED) Additional Instructions: take medications as prescribed. Follow-up with primary care provider. Emergency department for new or worse symptoms Patient Language: Swedish Prescriptions: New amoxicillin-pot clavulanate 875-125 mg tablet 1 tablet PO Q12H Qty: 14 0RF prednisone 50 mg tablet 50 mg PO DAILY Qty: 5 0RF amoxicillin-pot clavulanate 400-57 mg/5 mL suspension for reconstitution 11 ml PO Q12H 7 Days Qty: 154 0RF prednisolone 15 mg/5 mL solution 60 mg PO DAILY 5 Days Qty: 100 0RF Follow-up/Referrals: Cristopher Blakely MD [Primary Care Provider] - 1 Week Stand Alone Forms: Work/School Release IP Time of Disposition: 14:10
== END 2024-02-19 14:16 | disposition home or self-care (01) ==
PROVIDERS: Emergency Provider Nurse Practitioner Family; PCP Family Medicine
DX: M54.12 Radiculopathy, cervical region (principal); J01.10 Acute frontal sinusitis, unspecified; F17.210 Nicotine dependence, cigarettes, uncomplicated; E78.2 Mixed hyperlipidemia
CPT/HCPCS: 71046; 99213; G0463

== ENCOUNTER 2024-06-25 10:53 | Emergency (ER) | payer BC, SELFPAY ==
--- NOTE | 2024-06-25 10:54 | ED_ITS ---
HPI - URI/Sore Throat General Chief Complaint: Upper Respiratory Infection Stated Complaint: sob/coughing Time Seen by Provider: 06/25/24 10:54 Source: patient Mode of arrival: ambulatory Limitations: no limitations History of Present Illness HPI Narrative: Patient is a 54-year-old female that presents with sinus drainage for over 1 week. States cough started 5 days ago when is keeping her up at night. Patient states she has tried [id number] medication with no relief. Patient is a current everyday smoker. Denies any fever, chills, nausea, vomiting, diarrhea. Related Data Allergies Allergy/AdvReac Type Severity Reaction Status Date / Time Sulfa (Sulfonamide AdvReac Intermediate Gastrointestinal Verified 06/25/24 11:02 Antibiotics) Upset sulfanilamide AdvReac Intermediate Diarrhea Verified 06/25/24 11:02 Review of Systems Review of Systems: All systems reviewed & are unremarkable except as noted in HPI and below Constitutional: Constitutional: Denies chills, Denies fatigue, Denies fever(s), Denies headache(s), Denies malaise and Denies weakness Eyes: Eyes: Denies blurry vision, Denies itchy eyes and Denies loss of vision ENT: Denies otalgia, Denies headache(s), Reports nasal congestion, Denies sinus pain and Denies sore throat Cardiovascular: Cardiovascular: Denies chest pain, Denies irregular heart rhythm and Denies dyspnea Respiratory: Respiratory: Reports cough and Denies dyspnea Gastrointestinal: Gastrointestinal: Denies abdominal pain, Denies diarrhea, Denies nausea and Denies vomiting Musculoskeletal: Musculoskeletal: Denies back pain, Denies myalgias and Denies arthralgias Integumentary/Breasts: Skin/Breast: Denies pruritus and Denies rash Neurologic: Denies headache(s), Denies loss of vision and Denies weakness Psychiatric: Psychiatric: Reports no additional psychiatric complaints Endocrine: Endocrine: Denies fatigue Allergic/Immunologic: Allergic/Immunologic: Denies itchy eyes PMFSH Past Medical History Medical History BMI 22.0-22.9, adult BMI 25.0-25.9,adult Anxiety Cyst of kidney, acquired Mixed hyperlipidemia Seasonal allergies Thyroid enlargement Family History Family History Father Family history of premature coronary heart disease Hypertension Acute myocardial infarction Heart disease Grandparent Family history of malignant neoplasm Family history of coronary artery disease Mother No problems noted. Sibling No problems noted. Social History Social History Smoking packs per day: 0.5 Smoking cigarettes per day: 10.0 Years smoked: 32 Smoking pack-years: 16.00 Smoking status: Current every day smoker Tobacco type: cigarettes Second hand tobacco smoke exposure: No Alcohol intake: current Drinks per week: 1 Alcohol use details: WINE Substance use: never Substance use type: does not use Lack of Transportation: No Lack of Food: Never True Current Housing: I Have Housing Concerned About Future Housing: No Difficulty Paying Gas/Electric Bills: No Difficulty Paying for Meds: No Currently Unemployed: No Education: Associate Degree Difficulty w/ Childcare or Family Care: No Living arrangements: with family Occupation/Education: occupation 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 There is no relevant family history pertinent to the presenting complaint. Exam Const: General: cooperative, healthy appearing, comfortable, no acute distress and well nourished Nutritional Appearance: well nourished Orientation/consciousness: patient oriented x3 Limitations: no limitations HENMT: Head: normal to inspection, normocephalic and atraumatic Ears: hearing grossly normal bilaterally, external ears normal, TM's normal bilaterally, EAC's normal and no periauricular adenopathy Face/Nose/Sinus: Normal external nose present, Abnormal mucous membranes and turbinates present erythematous bilateral and diffuse, normal facial exam, sinuses nontender and face symmetric Face and sinus: normal facial exam, sinuses nontender and face symmetric Mouth: Yes Normal oral and palatal mucosa present, Yes lip normal, Yes tongue normal, Yes Normal salivary glands and ducts present, Yes oropharynx normal and Yes moist mucous membranes Teeth and gingiva: dentition normal Throat: posterior oropharynx normal, tonsils normal and uvula midline Eyes: General: appearance normal, both eyes and all related structures Alignment and Position: alignment normal and position normal Periorbital: periorbital findings normal Eyelids: eyelids normal Pupils: Equal, round and reactive pupils present Neck: Neck: normal visual inspection, full ROM, no lymphadenopathy and supple Chest: Chest palpation & inspection: normal inspection of the chest and normal palpation of entire chest wall Resp: Effort & Inspection: normal respiratory effort, able to speak in complete sentences and Actively coughing productive Auscultation: no crackles, no rales, no rhonchi and wheezes expiratory wheezes and right lower Cardio: Rate: regular rate Rhythm: regular rhythm Heart sounds: S1 normal heart sound present and S2 normal heart sound present GI: Inspection: normal to inspection Skin: General skin exam: normal color and no rashes or lesions noted Neuro: General: patient oriented x3 and moves all extremities Cranial nerv es: Yes Equal, round and reactive pupils present Speech: normal speech Gait exam (Neuro): Normal gait present Extrem: General: normal to inspection, full ROM and no edema Psych: Appearance: grossly normal and well kempt Mental Status: mental status grossly normal Speech and movement: Normal speech and movement present Affect: normal affect Attitude: cooperative Thought process: Normal thought process present Course Course Emergency Course: Discharge instructions reviewed with patient, as well as provided in writing per nursing staff. The instructions also include specific and strict return/GO TO THE ER as well as f/u information. All questions have been answered, and the patient deny any further questions with discharge and discharge plan. Portions of this record may have been created with voice recognition software Level of Care: Express Care Visit Vital Signs Vital signs: Vital Signs Temperature 37.0 C 06/25/24 11:03 Pulse Rate 81 06/25/24 11:03 Respiratory Rate 18 06/25/24 11:03 Blood Pressure 124/63 06/25/24 11:03 Pulse Oximetry 96 06/25/24 11:03 Oxygen Delivery Room Air 06/25/24 11:03 Temperature 37.0 C 06/25/24 11:03 Pulse Rate 81 06/25/24 11:03 Respiratory Rate 18 06/25/24 11:03 Blood Pressure 124/63 06/25/24 11:03 Pulse Oximetry 96 06/25/24 11:03 Oxygen Delivery Room Air 06/25/24 11:03 Reviewed MDM - URI/Sore Throat MDM Narrative Medical decision making narrative: Patient states she is unable to swallow pills due to aspiration 7 years ago leading to mental block clinic comes to swallowing pills Pt well hydrated appearing, in no respiratory distress, hemodynamically stable. Recommend supportive care. The patient is stable at time of discharge the clinical impression was discussed and the patient was given the opportunity to ask questions, which were addressed as completely as possible given the information available at present. Anticipatory guidance and return to care precautions were discussed and the importance of primary care follow-up was stressed and encouraged. The patient voiced understanding of the plan, indications to return, and the need for follow-up. Exam findings show no acute concerns or changes Patient is appropriate for outpatient treatment and follow-up. Differential diagnosis considered: Lee virus, strep pharyngitis, allergic rhinitis, upper respiratory tract infection, sinusitis, rhinosinusitis, nasopharyngitis. viral pharyngitis, otitis media, otitis externa, otitis effusion, foreign body, cerumen impaction, viral syndrome, and influenza. Medical Records Attestation: I reviewed the patient's medical records. Discharge Plan Discharge Clinical Impression: Acute purulent bronchitis, Current every day smoker Patient Disposition: Home Condition: Stable Instructions: Acute Bronchitis (ED) Additional Instructions: Take antibiotic as prescribed. Take steroids in the morning with food. Use Tessalon Perles as needed for cough. Use inhaler with spacer as needed. Other symptomatic treatments include: -Alternate Tylenol and Motrin per package directions for fever or pain: Tylenol 650-1000mg by mouth every 4-6 hours. Do not exceed 4000mg in 24 hours. Advil (Ibuprofen) 600 mg by mouth every 6 hours. Do not exceed 2400mg in 24 hours. 8 AM: Tylenol 11 AM: Ibuprofen 2 PM: Tylenol 5 PM: Ibuprofen 8 PM: Tylenol 11 PM: Ibuprofen 2 AM: Tylenol 5 AM: Ibuprofen -Antihistamine medication such as Benadryl at night and Zyrtec/Claritin/Rosangela during the day can help improve symptoms. -Use Flonase twice a day for 5 days then daily to help reduce the inflammation and dry up your sinuses. -You can also use Sudafed or Mucinex. Be sure to drink plenty of water with these medications at least 8 ounces with every dose and it is important to drink 8 to 10 glasses of water per day. Water is a natural decongestant -Eat and drink things that are easy to swallow, like tea or soup, or popsicles. -Oral rinses such as: Salt water gargles and/or may use topical anesthetic (eg. Chloraseptic spray) or lozenges to relieve dryness or throat pain). -Frequent hand washing or hand web press operator helper offset is one of the best ways to prevent spread of infection. -Using a vaporizer or humidifier at night will also help thin secretions and help with coughing up phlegm. Call your Primary Care Doctor and make a follow-up appointment in 3 days. If your cough worsens, you develop a fever greater than 103, you develop shaking chills, a fast heartbeat, trouble breathing and/or feel you are are breathing much faster than usual, call your Primary Care Doctor or go to the ER. Patient Language: Citizen Of The [place] Prescriptions: New amoxicillin-pot clavulanate 400-57 mg/5 mL suspension for reconstitution 10 ml PO BID 10 Days Qty: 200 0RF albuterol sulfate 90 mcg/actuation HFA aerosol inhaler 2 puff inhalation QID PRN (Reason: shortness of breath or wheezing) Qty: 6.7 0RF (DME) Aerochamber MV Spacer See Rx Instructions .Route Qty: 1 0RF Rx Instructions: As directed promethazine-DM 6.25-15 mg/5 mL syrup 5 ml PO Q4-6H PRN (Reason: cough) Qty: 118 0RF prednisone 5 mg/5 mL solution 40 mg PO DAILY 5 Days Qty: 200 0RF Follow-up/Referrals: Cristopher Blakely MD [Primary Care Provider] - 3 Days Stand Alone Forms: Work/School Release IP Time of Disposition: 11:44
[2024-06-25 11:03] VITALS: BP 124/63; PULSE 81; RESP 18; TEMP 37; O2SAT 96
--- OUTSIDE RECORDS SUMMARY | 2024-06-25 11:07 | XMS_ITS | Referral Summary ---
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 Social History Tobacco Use Types Packs/Day Years Used Date Smoking Tobacco: Every Day Cigarettes Smokeless Tobacco: Never Alcohol Use Standard Drinks/Week Comments Yes 0 (1 standard drink = 0.6 oz pur e alcohol) Personal Safety Answer Date Recorded Getting School Help Needed Not on file 04/20 Comments Unknown Sex and Gender Information Value Date Recorded Sex Assigned at Not on file 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 Gender Identity Not on file Sexual Orientation Not on file Last Filed Vital Signs Vital Sign Reading Time Taken Comments Blood Pressure 106/66 09/13/2018 10:39 AM CDT Pulse - - Temperature - - Respiratory Rate - - Oxygen Saturation - - Inhaled Oxygen Concentration - - Weight 68 kg (150 lb) 09/13/2018 10:39 AM CDT Height 170.2 cm (5' 7 ) 09/13/2018 10:39 AM CDT Body Mass Index 23.49 09/13/2018 10:39 AM CDT Plan of Treatment Not on file Insurance BLUE ACCESS OR BLUE ACCESS OR Care Teams Parking Lot Laborer Relationship Specialty Start Date End Date Cristopher Blakely MD PCP - General Family Medicine 03/08/18
--- OUTSIDE RECORDS SUMMARY | 2024-06-25 11:07 | XMS_ITS | Clinical Summary ---
Author Organization [facility] Address [address] [place] [address] Care Team Providers Care Miter Sawyer Name Role Phone Cristopher Blakely MD Primary Care Provider [phone] Allergies Active Allergy Reactions Criticality Noted Date Comments Sulfa Antibiotics Unknown 11/26/2021 Medications No known medications Family History Medical History Relation Comments Heart Disease Father Relation Status Comments Father Social History Tobacco Use Types Packs/Day Years Used Date Smoking Tobacco: Every Day Cigarettes Smokeless Tobacco: Never Tobacco Cessation:Ready to Q uit: Not Asked; Counseling Given: Not Answered Alcohol Use Standard Drinks/Week Comments Yes 0 (1 standard drink = 0.6 oz pur e alcohol) social Comments No Sex and Gender Information Value Date Recorded Sex Assigned at Not on file Legal Sex Female 5:23 PM CDT Gender Identity Not on file Sexual Orientation Not on file Last Filed Vital Signs Vital Sign Reading Time Taken Comments Blood Pressure 129/77 09/26/2022 9:01 PM CDT Pulse 67 09/26/2022 9:01 PM CDT Temperature 36.8 C (98.3 F) 09/26/2022 9:01 PM CDT Respiratory Rate 18 09/26/2022 9:01 PM CDT Oxygen Saturation 98% 09/26/2022 9:01 PM CDT Inhaled Oxygen Concentration - - Weight 70.3 kg (155 lb) 09/26/2022 4:58 PM CDT Height 170.2 cm (5' 7 ) 09/26/2022 4:58 PM CDT Body Mass Index 24.28 09/26/2022 4:58 PM CDT Plan of Treatment Health Maintenance Due Date Last Done Comments Colorectal Cancer Screening Colonoscopy (10 Years) 1970 Annual Physical 1973 Hepatitis C 1988 DTaP, Tdap and Td Vaccines ( 1 - Tdap) 1989 Hepatitis B Vaccines (1 of 3 - 19+ 3-dose series) 1989 Pneumococcal Vaccine: 50+ Ye ars (1 of 2 - PCV) 1989 Mammogram Screening 2010 Cervical Cancer Screening Pa p Smear (Age 30 to 64) Every 3 Years 11/22/2019 11/21/2016 Zoster Vaccines (1 of 2) 2020 Cervical Cancer Screening Pa p with HPV Testing (Age 30 to 64) Every 5 Years 11/21/2021 11/21/2016 Cervical Cancer Screening with HPV 11/21/2021 COVID-19 Vaccine ( - 2023-2 5 season) 2023 Meningococcal B Vaccine Aged Out No l onger eligible based on patient's age to complete this topic Meningococcal Vaccine Aged Out No branden omar eligible based on patient's age to complete this topic RSV Immunizations Under 20 Months Aged Out No longer eligible based on patient's age to complete this topic Insurance Care Teams Miter Sawyer Relationship Specialty Start Date End Date Cristopher Blakely MD [address] [place] [address] PCP - General FAMILY PRACTICE 09/26/22
--- OUTSIDE RECORDS SUMMARY | 2024-06-25 11:07 | XMS_ITS | Clinical Summary ---
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 Surgical History Surgery Date Site/Laterality Comments SECTION 1989, 1993, 1999 APPENDECTOMY 02/06/1994 - 02/05/1995 Medical History Medical History Date Comments Anxiety Family History Medical History Relation Name Comments No Known Problems Father No Known Problems Mother Relation Name Status Comments Father Mother Social History Tobacco Use Types Packs/Day Years [...] on file 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
== END 2024-06-25 11:47 | disposition home or self-care (01) ==
PROVIDERS: Emergency Provider Nurse Practitioner Family; PCP Family Medicine
DX: J20.9 Acute bronchitis, unspecified (principal); F17.210 Nicotine dependence, cigarettes, uncomplicated; E78.2 Mixed hyperlipidemia
CPT/HCPCS: 99213; G0463

== ENCOUNTER 2025-01-08 15:52 | Outpatient (CLI) | payer BC, SELFPAY ==
--- NOTE | ~2025-01-08 | MM_ITS ---
EXAMINATION: MM screening boni BI w martin HISTORY: Screening TECHNIQUE: Craniocaudal and mediolateral oblique 3-D tomosynthesis images were obtained and synthetic 2-D images were generated. CAD analysis was submitted and interpreted. COMPARISON: Comparison to multiple prior studies sequentially, with oldest reviewed study dated 09/10/2018. BREAST PARENCHYMAL COMPOSITION: Not dense: There are scattered areas of fibroglandular density. FINDINGS: There is no evidence of suspicious mass, calcification, or architectural distortion to suggest malignancy in either breast. There has been no suspicious interval change. IMPRESSION: 1. No mammographic evidence of malignancy. 2. Recommend routine screening mammography in one year. BI-RADS Category 1: Negative Reviewed, dictated and finalized at location I. SOFTWARE ENGINEER
== END 2025-01-08 15:53 | disposition home or self-care (01) ==
LOC: MICIMG 15:53
PROVIDERS: PCP Family Medicine; Visit Provider Nurse Practitioner
DX: Z12.31 Encounter for screening mammogram for malignant neoplasm of breast (principal)
CPT/HCPCS: 77063; 77067